=== PATIENT | female | born 1945 | race African-American/Black ===

== ENCOUNTER → 2017-02-24 | Outpatient (CLI) | payer MEDICARE, OTHER ==
--- NOTE | 2017-02-24 13:54 | KCIC ---
Indication: Postmenopausal. Bone mineral analysis of the lumbar spine and left femoral neck was performed. The bone mineral density of the lumbar spine from L1 to L4 is 0.995 with a T score of -0.5. The bone mineral density of the left femoral neck is 0.842 with a T score -0.8. IMPRESSION: Normal bone mineral density of the lumbar spine and left femoral neck. Electronically signed by: Hosea Ribera MD (02/24/2017 1:51 PM)
== END | disposition home or self-care (01) ==
LOC: KCIC DEXA 13:11
PROVIDERS: ATTEND Family Medicine
DX: Z78.0 Asymptomatic menopausal state (principal); M85.88 Other specified disorders of bone density and structure, other site
CPT/HCPCS: 77080